=== PATIENT | male | born 1970 | race Caucasian/White ===

== ENCOUNTER 2018-03-19 10:14 | Emergency (ER) | payer MEDICARE, OTHER ==
--- NOTE | 2018-03-19 10:24 | UC ---
Upper Extremity HPI - HPI Summary HPI Summary: 48 yo male presents with RIGHT forearm pain. 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 Has had pain since. Has not taken anything OTC for his discomfort. Denies numbness or tingling. - History of Current Complaint Stated Complaint: R ARM INJURY Time Seen by Provider: 03/19/18 10:23 Hx Obtained From: Patient Onset/Duration: Sudden Onset Severity Initially: Moderate Severity Currently: Moderate Pain Intensity: 5 Pain Scale Used: 0-10 Numeric - Allergies/Home Medications Allergies/Adverse Reactions: Allergies Allergy/AdvReac Type Severity Reaction Status Date / Time No Known Allergies Allergy Verified 03/19/18 10:29 Home Medications: Home Medications Prazosin CAP* [Minipress CAP*] 1 tab PO DAILY 03/19/18 [History Confirmed ] Zaleplon (NF) [Sonata (NF)] 1 tab PO DAILY 03/19/18 [History Confirmed 03/19/18] hydrOXYzine HCL TAB* [Atarax 10 MG TAB*] 10 mg PO PRN 03/19/18 [History] PMH/Surg Hx/FS Hx/Imm Hx Psychological History: Anxiety, Depression - Surgical History Surgical History: Yes Surgery Procedure, Year, and Place: ext. wisdom teeth - Family History Known Family History: Positive: None - Social History Occupation: Employed Full-time Lives: With Family Alcohol Use: Weekly Substance Use Type: Marijuana Substance Use Comment - Amount & Last Used: may 2013 Smoking Status (MU): Never Smoked Tobacco Review of Systems All Other Systems Reviewed And Are Negative: Yes Constitutional: Positive: Negative Skin: Positive: Negative Respiratory: Positive: Negative Cardiovascular: Positive: Negative Neurovascular: Positive: Negative Musculoskeletal: Positive: Other: - Right forearm and wrist pain Neurological: Positive: Negative Psychological: Positive: Negative Physical Exam - Summary Physical Exam Summary: GENERAL: NAD. WDWN. No pain distress. SKIN: No rashes, sores, lesions, or open wounds. CHEST: No accessory muscle use. Breathing comfortably and in no distress. CV: Pulses intact radial and ulnar. Cap refill <2seconds MSK: Right wrist: mild TTP about whole wrist. FROM. Strength 5/5 including card decorator strength. No edema or obvious bony deformities. No snuffbox tenderness. RIGHT FOREARM: Mild TTP overlying mid-forearm soft tissues. RIGHT ELBOW: Mild TTP about whole elbow. FROM including pronation and supination. FROM without pain. NEURO: Alert. Sensations intact hand and all fingers. PSYCH: Age appropriate behavior. Triage Information Reviewed: Yes Vital Signs: Vital Signs: Temp Pulse Resp BP Pulse Ox 98.3 F 76 16 147/94 100 03/19/18 10:24 03/19/18 10:24 03/19/18 10:24 03/19/18 10:24 03/19/18 10:24 Vital Signs Reviewed: Yes Upper Extremity Course/Dx - Course Course Of Treatment: XR: IMPRESSION: OSTEOARTHRITIS. NO ACUTE OSSEOUS INJURY. IF SYMPTOMS PERSIST, RECOMMEND REPEAT IMAGING. Suspect contusion. Advised to RICE and take ibuprofen for discomfort. Will provide him with a wrist brace to use for added comfort. - Differential Dx/Diagnosis Provider Diagnosis: Contusion of right forearm, Fall Discharge - Sign-Out/Discharge Documenting (check all that apply): Patient Departure All imaging exams completed and their final reports reviewed: Yes - Discharge Plan Condition: Stable Disposition: HOME Patient Education Materials: Contusion in Adults (ED) Referrals: Hector VALLEJO,Jamie Rutledge [Primary Care Provider] - Additional Instructions: If you develop a fever, shortness of breath, chest pain, new or worsening symptoms - please call your PCP or go to the ED. Your blood pressure was high at todays visit. Please see your primary provider within 4 weeks for recheck and re-evaluation. Rest, Ice, and elevate your arm as much as possible. May take ibuprofen 600mg every 6-8 hours as needed for discomfort. - Billing Disposition and Condition Condition: STABLE Disposition: Home - Attestation Statements Provider Attestation: I was available for consult. This patient was seen by the NOE. The patient was not presented to, seen by, or examined by me. -Carissa
--- OUTSIDE RECORDS SUMMARY | 2018-03-19 10:24 | XMS REPORT ---
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 Problem Trigger finger, left M65.332 Active 498759092 middle finger Problem Degenerative disc M50.30 Active 62960324 disease, cervical Problem Depression with F41.8 Active 775091101 anxiety Problem Schizoaffective 295.70 Active 92700943 disorder Problem NSAID long-term use Z79.1 Active 730907537 Problem Cervical M54.12 Active 93267600 radiculopathy at C8 ALLERGIES No Information ENCOUNTERS Encounter Location Date Diagnosis [facility] [address] [place], [place] [address] [facility] [address] [place], [place] [address] [facility] [address] [place], [place] [address] [facility] [address] [place] [address] [facility] [address] [place] [address] [facility] [address] [place] [address] [facility] [address] [place] [address] [facility] [address] [place] [address] [facility] [address] [place], [place] [address] [facility] [address] [place], [place] [address] [facility] [address] [place], [place], [place] [address] F41.8 ; Fatigue, unspecified type R53.83 and Acne vulgaris L70.[address] [place] [address] [place], [place] [address] [place] [address] [place], Mar, [place] [address] F41.[address] [place] [address] [place], Feb, [place] [address] F41.8 and Tenosynovitis of radial styloid M65.[address] [place] [address] [place], [place] [address] [place] [address] [place], [place] [address] [place] [address] [place], [place], [place] [address] G47.[address] [place] [address] [place], [place] [address] [place] [address] [place], [place] [address] [place] [address] [place], [place], [place] [address] disorder F60.3 and Schizoaffective disorder F25.[address] [place] [address] [place], [place] [address] [place] [address] [place], [place] [address] [place] [address] [place], [place] [address] [place] [address] [place], [place] [address] [place], Jul, Tr[place] [address] finger M65.332 [facility] [address] June, Encounter for PPD skin test [place], [place] reading Z11.1 [address] [place] [facility] [address] [place], [place] [address] [place], [place] [address] [place] [address] [place], [place] [address] [place], [place] [address] [place] [address] [place], [place] [address] [place] [address] [facility] [place], Apr, [place] [address] cervical M50.30 and Obstructive sleep apnea G47.33 [place] [facility] [address] [place] [address] [place], [place] [address] [facility] [address] [place] [address] [place], Dec, [place] [address] cervical M50.[address] [place] [address] [place], [place], [place] [address] medical examination with abnormal findings Z00.01 ; NSAID long-term use Z79.1 ; Screening, lipid Z13.220 ; Encounter for immunization Z23 ; Cervical radiculopathy at C8 M54.12 and Depression with anxiety F41.8 [place] [facility] [address] [place] [address] [place], [place] [address] [facility] [address] [place] [address] [place], [place] [address] [place], [place] [address] [place], [place] [address] [place] [address] [place], [place] [address] [place], [place] [address] [place], [place] [address] [place], [place], [place].[address] [place] [address] Mar, Sinus infection 473.9 [place] [address] [place], [place] [address] [place], [place], [place] [address] venereal disease V74.5 ; HIGH-RISK SEXUAL BEHAVR V69.2 ; Special screening examination for other specified viral diseases V73.89 and HIV COUNSELING V65.[address] [place] [address] [place], [place] [address] [place], [place] [address] [place], [place] [address] Mar, Acute sinusitis NOS 461.9 [place] [address] Mar, Acute URI [[place] [address] respiratory infection] NOS 465.9 [facility] [address] [facility], Jan, [place]itis [place] [address] [facility] [address] [place] [address] Nov, [place] [address] [facility] [address] [place] [address], [place] [address], [place] [address] IMMUNIZATIONS No Known Immunizations SOCIAL HISTORY Never Assessed REASON FOR REFERRAL FUNCTIONAL STATUS PLAN OF CARE VITAL SIGNS MEDICATIONS Medication Instructions Dosage Frequency Start End Duration Status Date Date Mirtazapine 30 Orally Once a 1 tablet 24h Unknown MG day before bedtime in the evening Gabapentin 800 Orally Three 1 tablet 8h Not-Taking MG times a day Melatonin 3 MG Orally Once a 1 tablet 24h Active day at bedtime as needed with food Minipress Active Naproxen Active BusPIRone HCl Orally Three 1 tablet 8h Active 10 MG times a day BuPROPion HCl Orally Once a 1 tablet 24h Active ER (XL) 300 MG day in the morning Zaleplon 5 MG Orally Once a 1-2 24h Active day capsule at bedtime as needed HydrOXYzine HCl Active BuSpar Active PROCEDURES Procedure Date Ordered Result Body Site PERIODIC ORAL EXAMINATION Mar 18, 2018 RESULTS No Results REASON FOR VISIT Insurance Providers [facility] Health Member Patient Patient Patient Patient Patient Subscriber Subscriber Subscriber Group Insurance Plan Plan Plan Plan ID Relationship Address Phone Name Date of ID Name Date of No Type Insurance Insurance Insurance Coverage to Subscriber Address Phone Name Dates [facility] Slide [phone] [facility] Slide self Familia [id number] C D [place] [address] [place] [facility] [address] [place] [address] Medical 15 Blue [phone] Blue self Familia [id number] Choice Opt [id number] Choice Opt [place] 1 [place] Medical [address] [facility] Slide [phone] [facility] Slide self Familia [id number] C D Dental [place] 02 C D [place] [address] 35 Medicare National [phone] Medicare self Familia [id number] PPS Government 41 PPS [place] [address] [place] [id number] Medicaid [id number] [phone] Medicaid self Familia [id number] [facility] [address] [place] [address] Blue [phone] Blue self Familia [id number] Choice Opt 9255 [address] 83 Choice Opt [place] [place] Claims [id number] [place] Hplex [facility] Hplex Ramos [facility] [address] [facility] Slide [phone] [facility] Slide self Familia [id number] C D Family [place] 02 C D [place] [address] Planning 0 Medicaid [phone] Medicaid self Familia [id number] Wrap [facility] [address] W[address] [facility] [address] MEDICAL (GENERAL) HISTORY Type Description Date Medical History PTSD Medical History Depression and anxiety Medical History personality disiorders Medical History DDD in cervical spine Surgical History [facility] Hospitalization History Suicidal ideation - [facility] in[facility] psych 2012
--- OUTSIDE RECORDS SUMMARY | 2018-03-19 10:24 | XMS REPORT ---
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 76318447 personality disorder Problem Trigger finger, left M65.332 Active 850726557 middle finger Problem Degenerative disc M50.30 Active 30677357 disease, cervical Problem Depression with F41.8 Active 592247740 anxiety Problem Schizoaffective 295.70 Active 19648458 disorder Problem NSAID long-term use Z79.1 Active 521154474 Problem Cervical M54.12 Active 86472356 radiculopathy at C8 ALLERGIES No Known Allergies ENCOUNTERS Encounter Location Date Diagnosis [place] [facility] [address] [place], [place] [address] [place] [facility] [address] [place], [place] [address] [place] [facility] [address] [place] [address] [place] [facility] [address] [place] [address] [place] [facility] [address] [place] [address] [place] [facility] [address] [place] [address] [place] [facility] [address] [place] [address] [place] [facility] [address] [place] [address] [place] [facility] [address] [place] [address] [place] [facility] [address] [place], [place] [address] [facility] [place] [facility] [address] [place], [place], [place] [address] F41.8 ; Fatigue, unspecified type R53.83 and Acne vulgaris L70.0 [place] [facility] [address] [place] [address] [place] [address] [place] [facility] [address] [place] [address] [place], [place] [address] F41.8 [place] [address] [place], [place], [place] [address] F41.8 and Tenosynovitis of radial styloid M65.4 [place] [address] [place], [place] [address] [place] [facility] [address] [place] [address] [place], [place] [address] [place] [address] [place], [place], [place] [address] G47.33 [place] [address] [place], [place] [address] [place], [place] [address] [place], [place], [place] [address] disorder F60.3 and Schizoaffective disorder F25.9 [place] [address] [place] [address] [place] [address] [place], [place] [address] [place], [place] [address] [facility] [address] [place] [address] [place], [place] [address] [place], [place], Trigger [place] [address] finger M65.332 [facility] [address] June, Encounter for PPD skin test [place], [place] reading Z11.1 [address] [place] [facility] [address] [place], [place] [address] [place], [place] [address] [place] [address] [place], [place] [address] [facility] [address] [place], [place] [address] [place], [place] [address] [facility] [address] [facility] [place], Apr, [place] [address] cervical M50.30 and Obstructive sleep apnea G47.33 [place] [facility] [address] [place] [address] [place], [place] [address] [place] [address] [place], Dec, [place] [address] cervical M50.30 [place] [address] [place], [place], [place] [address] medical examination with abnormal findings Z00.01 ; NSAID long-term use Z79.1 ; Screening, lipid Z13.220 ; Encounter for immunization Z23 ; Cervical radiculopathy at C8 M54.12 and Depression with anxiety F41.8 [place] [address] [place], [place] [address] [place], [place] [address] [place] [address] [place] [address] [place], [place] [address] [place] [address] [place], [place] [address] [place], [place] [address] [place], [place] [address] [place], Jul, Sleep apnea 780.[address] [place] [address] Mar, Sinus infection 473.9 [place] [address] [place] [address] [place], [place] [address] [place], [place], [place] [address] venereal disease V74.5 ; HIGH-RISK SEXUAL BEHAVR V69.2 ; Special screening examination for other specified viral diseases V73.89 and HIV COUNSELING V65.44 [place] [address] [place], [place] [address] [place] [address] [place], [place] [address] [place] [address] Mar, Acute sinusitis NOS 461.9 [place] [address] Mar, Acute URI [[place] [address] respiratory infection] NOS 465.9 [facility] [address] [place] [address], Jan, Pharyngitis [place] 462 [place] [address] [facility] [address] [place] [address] Nov, [place] [address], [place] [address], [place] [address] IMMUNIZATIONS No Known Immunizations SOCIAL HISTORY Never Assessed REASON FOR REFERRAL FUNCTIONAL STATUS PLAN OF CARE Activity Details Follow Up 6 Months Reason: VITAL SIGNS MEDICATIONS Medication Instructions Dosage Frequency Start End Duration Status Date Date Zaleplon 5 MG Orally Once a 1-2 24h Active day capsule at bedtime as needed Mirtazapine 30 Orally Once a 1 tablet 24h Unknown MG day before bedtime in the evening Gabapentin 800 Orally Three 1 tablet 8h Not-Taking MG times a day BuPROPion HCl Orally Once a 1 tablet 24h Active ER (XL) 300 MG day in the morning Minipress Active HydrOXYzine HCl Active Naproxen Active BuSpar Active Melatonin 3 MG Orally Once a 1 tablet 24h Active day at bedtime as needed with food BusPIRone HCl Orally Three 1 tablet 8h Active 10 MG times a day PROCEDURES Procedure Date Ordered Result Body Site BITEWINGS - FOUR FILMS Mar 18, 2018 PROPHYLAXIS - ADULT 13yrs and older Mar 18, 2018 Caries Risk Assess and Doc Low Risk Mar 18, 2018 RESULTS No Results REASON FOR VISIT cleaning Insurance Providers [facility] Health Member Patient Patient Patient Patient Patient Subscriber Subscriber Subscriber Group Insurance Plan Plan Plan Plan ID Relationship Address Phone Name Date of ID Name Date of No Type Insurance Insurance Insurance Coverage to Subscriber Address Phone Name Dates [facility] [phone] [facility] self Familia [id number] C D Family [place] 02 [place] [address] Planning 0 [facility] Slide [phone] [facility] Slide self Familia [id number] C D [place] 02 [address] [place] [address] Medical 15 [facility] Slide [phone] [facility] Slide self Familia [id number] C D Dental [place] 02 C D [place] [address] 35 Medicare National [id number] Medicare self Familia [id number] PPS Government 41 PPS [place] [facility] [address] [facility] [id number] Blue [phone] Blue self Familia [id number] Choice Opt [id number] Choice Opt [place] 1 Medical [place] Medical [address] Medicaid [id number] Medicaid self Familia [id number] [facility] [address] [place] [address] Blue [phone] Blue self Familia [id number] Choice Opt 9255 Attn 83 Choice Opt [place] [place] Claims GG457 [place] Hplex Ramos Dept Hplex Ramos [facility] [address] Medicaid [id number] Medicaid self Familia [id number] Wrap [facility] 56 Wrap [place] [address] MEDICAL (GENERAL) HISTORY Type Description Date Medical History PTSD Medical History Depression and anxiety Medical History personality disiorders Medical History DDD in cervical spine Surgical History [facility] Hospitalization History Suicidal ideation - [place] inpt psych 2012
[2018-03-19 10:30] VITALS: BP 147/94
== END 2018-03-19 11:25 | disposition home or self-care (01) ==
LOC: UCEAST 10:14
DX: S50.11XA Contusion of right forearm, initial encounter (principal); W00.0XXA Fall on same level due to ice and snow, initial encounter; Y92.9 Unspecified place or not applicable
CPT/HCPCS: 99202; G0463